=== PATIENT | female | born 1975 | race Caucasian/White ===

== ENCOUNTER 2016-05-09 08:03 | Emergency (ER) | payer MEDICAID ==
[~2016-05-09] VITALS: Ht 165.1 cm; Wt 90.7 kg
[2016-05-09 08:21] VITALS: BP 140/91
== END 2016-05-09 10:08 | disposition home or self-care (01) ==
LOC: ER 08:05
DX: J20.9 Acute bronchitis, unspecified (principal); J01.90 Acute sinusitis, unspecified; R04.0 Epistaxis; F17.210 Nicotine dependence, cigarettes, uncomplicated; J45.909 Unspecified asthma, uncomplicated; E11.9 Type 2 diabetes mellitus without complications; I10 Essential (primary) hypertension
CPT/HCPCS: 71020

== ENCOUNTER 2016-10-08 03:29 | Inpatient (IN) | payer MEDICAID ==
[~2016-10-08] VITALS: Ht 165.1 cm; Wt 97.5 kg
[2016-10-08 08:29] LABS: Basophils # (auto) 0 uL; Basophils % (auto) 0.5 % (0.0-2.0); CONDITION Y; Eosinophils # (auto) 0.3 uL; Eosinophils % (auto) 2.6 % (0.0-7.0); Hematocrit 44.6 % (36.0-46.0); Hemoglobin 15.1 g/dL (12.2-16.2); Lymphocytes # (auto) 3.1 uL; Lymphocytes % (auto) 32.9 % (10.0-50.0); Mean Corpuscular Hemoglobin 30.5 pg (28.0-32.0); Mean Corpuscular Hgb Conc. 33.9 g/dL (32.0-36.0); Mean Corpuscular Volume 89.9 fL (80.0-100.0); Mean Platelet Volume 9.2 fL (7.4-10.4); Monocytes # (auto) 0.8 uL; Monocytes % (auto) 8.8 % (0.0-12.0); Neutrophils # (auto) 5.3 uL; Neutrophils % (auto) 55.2 % (37.0-80.0); Platelet Count (auto) 237 10^3/uL (140-450); Red Cell Distribution Width 13.6 % (11.6-16.0); White Blood Cell 9.6 10^3/uL (4.4-10.8)
[2016-10-08 08:50] LABS: Albumin 3.8 g/dL (3.4-5.0); BUN/Creatinine Ratio 10.2; Calcium 9.6 mg/dL (8.5-10.1); Potassium 3.2 mmol/L (3.5-5.1)
[2016-10-08 08:53] LABS: Bilirubin, Total 0.8 mg/dL (0.2-1.0); Total Protein 7.5 g/dL (6.4-8.2)
[2016-10-08 09:05] LABS: INR 0.98 (0.9-1.15); Partial Thromboplastin Time 26.9 sec (22.64-33.71); Prothrombin Time 10.7 sec (9.37-12.3)
[2016-10-08] MEDS ORDERED: POTASSIUM CHL 20MEQ/100ML 100 ML IV ONE (09:15)
[2016-10-08] MEDS ORDERED: ASPirin 81 mg TAB PO ONE (09:15)
[2016-10-08] MEDS ORDERED: ACETAMINOPHEN 500 MG TAB PO PRN (09:30)
[2016-10-08] MEDS ORDERED: PROMETHAZINE HCL 25 MG/ML 1ML IV PRN (09:30)
[2016-10-08] MEDS ORDERED: LACTULOSE 20Gm/30ML SOLN PO PRN (09:30)
[2016-10-08] MEDS ORDERED: MORPHINE SULF INJ 2 MG/ML SYRINGE 1ML IV PRN (09:30)
[2016-10-08] MEDS ORDERED: DEXTROSE (50%) 50ML SYRG IV PRN (09:30)
[2016-10-08] MEDS ORDERED: POTASSIUM CHL 20 Meq TABLET PO ONE (09:30)
[2016-10-08] MEDS ORDERED: TEMAZEPAM 15 MG CAP PO PRN (09:30)
[2016-10-08] MEDS ORDERED: ALBUTEROL SULF 2.5 MG/0.5ML(0.5%) NEB SOLN NEB PRN (09:30)
[2016-10-08] MEDS ORDERED: MORPHINE SULFATE 4 MG/ML SYRG IV PRN (09:30)
[2016-10-08] MEDS ORDERED: LORazepam 0.5 MG TAB PO PRN (09:30)
[2016-10-08] MEDS ORDERED: NITROGLYCERIN 0.4 MG SL TAB SL PRN (09:30)
[2016-10-08] MEDS ORDERED: HYDROcodone-ACET 5/325MG TAB PO PRN (09:30)
[2016-10-08] MEDS: SODIUM CHLORIDE 0.9% 1,000 ML IV SCH ×2 (09:35→23:15)
[2016-10-08] MEDS: ASPirin 81 mg TAB PO SCH (10:00)
[2016-10-08] MEDS: METOPROLOL TARTRATE 25 MG TAB PO SCH ×2 (10:23→23:08)
[2016-10-08] MEDS: ENOXAPARIN SOD 80 MG/0.8ML SYRINGE SC SCH ×2 (10:23→23:08)
[2016-10-08] MEDS: NITROGLYCERIN 0.2MG/HR TOPICAL PATCH TD SCH (10:24)
[2016-10-08 11:22] LABS: Temperature: 22.9 C (20.0-25.0)
[2016-10-08] MEDS: ACCU-CHEK COMFORT CURVE STRIP VI SCH ×3 (11:37→22:48)
[2016-10-08] MEDS: InsuLIN REG 1unit/0.01ml Soln (100units/ml) SC SCH ×3 (11:38→22:48)
[2016-10-08 11:46] LABS: Urine Bilirubin Negative (Negative); Urine Blood Negative /uL (Negative); Urine Color Yellow (Yellow); Urine Glucose Normal (Normal); Urine Ketone Negative (Negative); Urine Nitrite Negative (Negative); Urine RBC 1 /hpf (0 - 4); Urine Squamous Epithelial Cell MOD /hpf (<5); Urine Urobilinogen Normal (Negative)
[2016-10-08 18:13] VITALS: BP 84/58
[2016-10-08] MEDS ORDERED: LORazepam 2MG/ML-1ML VIAL IV PRN (20:30)
[2016-10-08] MEDS ORDERED: ATORVASTATIN 20 MG TAB PO SCH (22:00)
[2016-10-08 22:09] LABS: Cholesterol 149 mg/dL (< 200); HDL Cholesterol 53 mg/dL (40-59); LDL Cholesterol 72 mg/dL (< 100); Triglycerides 218 mg/dL (< 150)
[2016-10-08] MEDS: GABAPENTIN 300 MG CAP PO SCH (23:08)
[2016-10-09] MEDS: LEVOTHYROXINE SODIUM 25 MCG TAB PO SCH (06:18)
[2016-10-09] MEDS: GABAPENTIN 300 MG CAP PO SCH ×3 (06:18→22:22)
[2016-10-09 06:37] LABS: Basophils # (auto) 0.1 uL; Basophils % (auto) 0.9 % (0.0-2.0); CONDITION Y; Eosinophils # (auto) 0.3 uL; Hematocrit 41.3 % (36.0-46.0); Hemoglobin 13.9 g/dL (12.2-16.2); Lymphocytes # (auto) 2.3 uL; Lymphocytes % (auto) 35.5 % (10.0-50.0); Mean Corpuscular Hemoglobin 30.6 pg (28.0-32.0); Mean Corpuscular Hgb Conc. 33.7 g/dL (32.0-36.0); Mean Corpuscular Volume 90.8 fL (80.0-100.0); Mean Platelet Volume 8.9 fL (7.4-10.4); Monocytes # (auto) 0.5 uL; Monocytes % (auto) 7.6 % (0.0-12.0); Neutrophils # (auto) 3.4 uL; Platelet Count (auto) 218 10^3/uL (140-450); Red Cell Distribution Width 13.6 % (11.6-16.0); White Blood Cell 6.6 10^3/uL (4.4-10.8)
[2016-10-09] MEDS ORDERED: METF-370 (06:57)
[2016-10-09] MEDS ORDERED: AZIT250T5 (06:57)
[2016-10-09] MEDS: InsuLIN REG 1unit/0.01ml Soln (100units/ml) SC SCH ×4 (07:00→22:00)
[2016-10-09 07:09] LABS: Albumin 3.4 g/dL (3.4-5.0); BUN/Creatinine Ratio 12.8; Bilirubin, Total 0.7 mg/dL (0.2-1.0); Potassium 4.1 mmol/L (3.5-5.1); Total Protein 6.7 g/dL (6.4-8.2)
[2016-10-09] MEDS: ACCU-CHEK COMFORT CURVE STRIP VI SCH ×4 (07:10→22:23)
[2016-10-09] MEDS: ASPirin 81 mg TAB PO SCH (09:07)
[2016-10-09] MEDS: lamoTRIgine 100 MG TAB PO SCH (09:07)
[2016-10-09] MEDS: NITROGLYCERIN 0.2MG/HR TOPICAL PATCH TD SCH (09:08)
[2016-10-09] MEDS: METOPROLOL TARTRATE 25 MG TAB PO SCH ×2 (09:08→22:22)
[2016-10-09] MEDS: ENOXAPARIN SOD 80 MG/0.8ML SYRINGE SC SCH (09:08)
[2016-10-09] MEDS: ABILIFY 30 MG PO SCH (09:09)
[2016-10-09] MEDS: SODIUM CHLORIDE 0.9% 1,000 ML IV SCH ×2 (12:02→22:23)
[2016-10-09] MEDS ORDERED: ARIP30TA PO (12:28)
[2016-10-09] MEDS ORDERED: BUP75T PO (12:28)
[2016-10-09] MEDS ORDERED: LEVO100T8 PO (12:28)
[2016-10-09] MEDS ORDERED: METF-370 PO (12:28)
[2016-10-09] MEDS ORDERED: MELO-61 PO (12:31)
[2016-10-09] MEDS ORDERED: VALA1TAB28 PO (12:31)
[2016-10-09] MEDS ORDERED: GABA-339 PO (12:31)
[2016-10-09] MEDS ORDERED: BECL0.07 IN (12:34)
[2016-10-09] MEDS ORDERED: VALS160T53 PO (12:34)
[2016-10-09] MEDS ORDERED: ADENOSINE 79 MG in GIVE UN-DILUTED 0 ML IV ONE (14:15)
[2016-10-09 17:42] VITALS: BP 134/76
[2016-10-09] MEDS: buPROPion HCL 75 MG TAB PO SCH (18:42)
[2016-10-09 22:10] VITALS: BP 129/85
[2016-10-09] MEDS: ATORVASTATIN 20 MG TAB PO SCH (22:22)
[2016-10-09] MEDS: ENOXAPARIN SOD 100 MG/1 ML SYRINGE SC SCH (22:22)
[2016-10-10 05:00] VITALS: BP 136/84
[2016-10-10] MEDS: LEVOTHYROXINE SODIUM 25 MCG TAB PO SCH (06:13)
[2016-10-10] MEDS: GABAPENTIN 300 MG CAP PO SCH ×3 (06:13→21:52)
[2016-10-10] MEDS: buPROPion HCL 75 MG TAB PO SCH ×2 (06:13→18:33)
[2016-10-10] MEDS: InsuLIN REG 1unit/0.01ml Soln (100units/ml) SC SCH ×4 (06:14→21:52)
[2016-10-10] MEDS: ACCU-CHEK COMFORT CURVE STRIP VI SCH ×4 (06:14→21:52)
[2016-10-10] MEDS ORDERED: LAMO200T2 PO (06:14)
[2016-10-10 06:23] LABS: Albumin 3.1 g/dL (3.4-5.0); BUN/Creatinine Ratio 12.2; Calcium 8.1 mg/dL (8.5-10.1); Magnesium 1.6 mg/dL (1.6-2.6); Potassium 3.7 mmol/L (3.5-5.1)
[2016-10-10 06:28] LABS: Bilirubin, Total 0.3 mg/dL (0.2-1.0)
[2016-10-10 06:29] LABS: B-Type Natriuretic Peptide 182.98 pg/mL (0-100)
[2016-10-10 07:18] LABS: Temperature: 22.5 C (20.0-25.0)
[2016-10-10 08:00] VITALS: BP 144/94
[2016-10-10 09:00] VITALS: BP 144/94
[2016-10-10] MEDS: NITROGLYCERIN 0.2MG/HR TOPICAL PATCH TD SCH (10:00)
[2016-10-10] MEDS: ABILIFY 30 MG PO SCH (10:00)
[2016-10-10] MEDS: ASPirin 81 mg TAB PO SCH (10:31)
[2016-10-10] MEDS: lamoTRIgine 100 MG TAB PO SCH (10:31)
[2016-10-10] MEDS: METOPROLOL TARTRATE 25 MG TAB PO SCH ×2 (10:32→21:52)
[2016-10-10] MEDS: ENOXAPARIN SOD 100 MG/1 ML SYRINGE SC SCH (10:32)
[2016-10-10] MEDS: SODIUM CHLORIDE 0.9% 1,000 ML IV SCH (11:23)
[2016-10-10 13:00] VITALS: BP 137/94
[2016-10-10 17:00] VITALS: BP 145/75
[2016-10-10] MEDS: ATORVASTATIN 20 MG TAB PO SCH (21:52)
[2016-10-10 22:11] VITALS: BP 134/92
[2016-10-11 04:53] VITALS: BP 135/91
[2016-10-11] MEDS: LEVOTHYROXINE SODIUM 25 MCG TAB PO SCH (06:09)
[2016-10-11] MEDS: buPROPion HCL 75 MG TAB PO SCH (06:09)
[2016-10-11] MEDS: GABAPENTIN 300 MG CAP PO SCH (06:09)
[2016-10-11] MEDS: ACCU-CHEK COMFORT CURVE STRIP VI SCH (06:10)
[2016-10-11] MEDS: InsuLIN REG 1unit/0.01ml Soln (100units/ml) SC SCH (06:10)
[2016-10-11 09:00] VITALS: BP 137/97
[2016-10-11] MEDS: ABILIFY 30 MG PO SCH (10:00)
[2016-10-11] MEDS: lamoTRIgine 100 MG TAB PO SCH (10:54)
[2016-10-11] MEDS: ASPirin 81 mg TAB PO SCH (10:54)
[2016-10-11] MEDS: METOPROLOL TARTRATE 25 MG TAB PO SCH (10:55)
[2016-10-11 13:00] VITALS: BP 139/98
[2016-10-12 09:25] LABS: Hepatitis B Surface Antibody Negative
== END 2016-10-11 13:00 | disposition home or self-care (01) | DRG 198 ==
LOC: ER 03:29 → TELE 03:30 → TELE-WESTW 10-09 16:08
PROVIDERS: ADMIT Internal Medicine; ATTEND Internal Medicine
DX: I25.10 Atherosclerotic heart disease of native coronary artery without angina pectoris (principal); E11.22 Type 2 diabetes mellitus with diabetic chronic kidney disease; K76.0 Fatty (change of) liver, not elsewhere classified; E11.65 Type 2 diabetes mellitus with hyperglycemia; N18.9 Chronic kidney disease, unspecified; G45.9 Transient cerebral ischemic attack, unspecified; I12.9 Hypertensive chronic kidney disease with stage 1 through stage 4 chronic kidney disease, or unspecified chronic kidney disease; J45.909 Unspecified asthma, uncomplicated; E03.9 Hypothyroidism, unspecified; E66.01 Morbid (severe) obesity due to excess calories; E86.0 Dehydration; E87.6 Hypokalemia; F12.90 Cannabis use, unspecified, uncomplicated; F14.10 Cocaine abuse, uncomplicated; F17.210 Nicotine dependence, cigarettes, uncomplicated; F31.9 Bipolar disorder, unspecified; I34.0 Nonrheumatic mitral (valve) insufficiency; L08.9 Local infection of the skin and subcutaneous tissue, unspecified; E66.9 Obesity, unspecified; Z79.82 Long term (current) use of aspirin; Z79.899 Other long term (current) drug therapy; Z88.2 Allergy status to sulfonamides; Z68.35 Body mass index [BMI] 35.0-35.9, adult
CPT/HCPCS: 36415; 70450; 70551; 71020; 76705; 80053; 80061; 80307; 81001; 82550; 82607; 82746; 82962; 83036; 83735; 83880; 84443; 84484; 85025; 85379; 85610; 85652; 85730; 86141; 86704; 86706; 86708; 86803; 87340; 93005; 93306; 93886; 96372; 96374; J0153; J1815

== ENCOUNTER 2023-03-07 10:07 | Emergency (ER) | payer MEDICAID ==
[~2023-03-07] VITALS: Ht 165.1 cm; Wt 77.2 kg
[~2023-03-07 10:07] MED LIST: ARIP1TAB9 PO; AZIT-43; BECL0.07 IN; BUPR75TA89 PO; GABA-339 PO; LAMO200T2 PO; LEVO100T8 PO; MELO-61 PO; METF-370; METF-370 PO; VALA1TAB PO; VALS160T53 PO
[2023-03-07 10:51] VITALS: BP 166/84; PULSE 76; RESP 24; O2SAT 100
[2023-03-07] MEDS ORDERED: MORPHINE SULFATE 4 MG/ML SYR/VIAL IV ONE (11:00)
[2023-03-07] MEDS ORDERED: SODIUM CHLORIDE 0.9% 1,000 ML IVB ONE (11:00)
[2023-03-07] MEDS ORDERED: PANTOPRAZOLE 40 MG/10 ML VIAL INJ IV ONE (11:00)
[2023-03-07] MEDS ORDERED: PROCHLORPERAZINE EDISYLATE 5 MG/ML 2ML VIAL IV ONE (11:00)
[2023-03-07 11:29] LABS: Basophils # (auto) 0.1 10 ^3/uL (0-0.2); Eosinophils # (auto) 0 10 ^3/uL (0-0.8); Eosinophils % (auto) 0.2 % (0.0-7.0); Hematocrit 48.5 % (36.0-46.0); Hemoglobin 16.3 g/dL (12.2-16.2); Lymphocytes # (auto) 0.9 10 ^3/uL (0.4-5.4); Lymphocytes % (auto) 9.3 % (10.0-50.0); Mean Corpuscular Hgb Conc. 33.7 g/dL (32.0-36.0); Mean Corpuscular Volume 86.1 fL (80.0-100.0); Monocytes # (auto) 0.3 10 ^3/uL (0-1.3); Monocytes % (auto) 2.5 % (0.0-12.0); Neutrophils # (auto) 8.6 10 ^3/uL (1.6-8.6); Nucleated Red Blood Cells % 0.1 %; Red Blood Cells 5.63 10^6/uL (4.0-5.20); Red Cell Distribution Width 14.1 % (11.8-14.3); White Blood Cell 9.9 10^3/uL (4.4-10.8)
[2023-03-07 11:46] LABS: Alanine Aminotransferase 46 U/L (7-40); Albumin 5.1 g/dL (3.2-4.8); Alkaline Phosphatase 52 U/L (46-116); Anion Gap 10 (5-15); Aspartate Aminotransferase 29 U/L (13-40); BUN/Creatinine Ratio 11.3 (10.0-20.0); Blood Urea Nitrogen 11 mg/dL (9-23); Carbon Dioxide 22 mmol/L (20-30); Chloride 104 mmol/L (98-107); Glucose 248 mg/dL (74-106); Lipase 30 U/L (12-53); Potassium 3.8 mmol/L (3.5-5.1); Sodium 136 mmol/L (136-145)
[2023-03-07 11:47] LABS: Bilirubin, Total 1.1 mg/dL (0.2-1.0); Total Protein 7.6 g/dL (5.7-8.2)
== END 2023-03-07 21:42 | disposition left against medical advice (07) ==
LOC: EDBD 10:07 → ER 10:07
DX: K82.8 Other specified diseases of gallbladder (principal); R10.13 Epigastric pain; F12.10 Cannabis abuse, uncomplicated; E11.22 Type 2 diabetes mellitus with diabetic chronic kidney disease; I12.9 Hypertensive chronic kidney disease with stage 1 through stage 4 chronic kidney disease, or unspecified chronic kidney disease; N18.9 Chronic kidney disease, unspecified; J44.9 Chronic obstructive pulmonary disease, unspecified; Z88.2 Allergy status to sulfonamides
CPT/HCPCS: 36415; 76705; 80053; 83690; 85025; 96374; 96375; 99285; C9113; J0780